=== PATIENT | male | born 1980 | race Caucasian/White ===

== ENCOUNTER 2016-11-24 03:21 | Inpatient (IN) | payer SELFPAY ==
[~2016-11-24] VITALS: Ht 177.8 cm; Wt 77.0 kg
[2016-11-24] VITALS (22 sets, daily range): BP systolic 94–172; BP diastolic 54–109; PULSE 60–93; RESP 18–25; TEMP 97.5–99.5; O2SAT 93–100
[2016-11-24] MEDS ORDERED: PROPOFOL 1000 MG/100 ML INJ 100 ML ONE (03:43)
[2016-11-24] MEDS ORDERED: SODIUM CHLORIDE 0.9% FLUSH 10 ML FLUSH IVF PRN (03:45)
--- NOTE | 2016-11-24 03:52 | PD ---
HPI . Heroin overdose Chief Complaint: OD/ Ingestion Time Seen by Provider: 03:36 Travel History International Travel<30 days: No Contact w/Intl Traveler<30days: No Traveled to known affect area: No History of Present Illness HPI Patient is brought in by [facility] following a heroin overdose at home. [facility] reports that they were called to the scene by the patient's roommates who found him unresponsive in the bathroom with a needle in his arm. EMS reports a Baxter Coma Scale of 3 on their arrival and a respiratory rate of about 4 and O2 sat of about 70%. They treated him with Narcan and airway support in route. They report that he became very agitated with the Narcan but did have an improvement in his respiratory status. No further history is available from this patient at this time. [facility] Past Medical History Diminished Hearing: No Social History Alcohol Use: Yes (RARE) Tobacco Use: Yes (2 PPD) Substance Use: Yes (HEROIN, CRACK) Allergies-Medications (Allergen,Severity, Reaction): Coded Allergies: No Known Allergies (Unverified , 11/24/16) Reported Meds & Prescriptions Reported Meds & Active Scripts Active Active Prescriptions or Reported Medications Unobtainable Review of Systems ROS Limitations: Intubated, Altered Mental Status, Unresponsive Physical Exam Exam Limitations: Altered Mental Status Narrative GENERAL: Patient is a little bit agitated on arrival. He is not verbal. He is breathing spontaneously on arrival. SKIN: Warm and dry. HEAD: Atraumatic. Normocephalic. EYES: Pupils equal and round. ENT: No nasal bleeding or discharge. Mucous membranes pink and moist. NECK: Trachea midline. Neck is supple. CARDIOVASCULAR: Regular rate and rhythm. RESPIRATORY: No accessory muscle use. He has rhonchi in GASTROINTESTINAL: Abdomen soft, non-tender, nondistended. MUSCULOSKELETAL: No obvious deformities. No edema. NEUROLOGICAL: Depressed mental status. Agitation. PSYCHIATRIC: Unable to assess. Data Data Last Documented VS Vital Signs Date Time Temp Pulse Resp B/P Pulse Ox O2 Delivery O2 Flow Rate FiO2 11/24/16 04:03 86 18 157/95 100 Ventilator 100 11/24/16 03:33 97.5 Orders Electrocardiogram (11/24/16 03:36) Complete Blood Count With Diff (11/24/16 03:36) Comprehensive Metabolic Panel (11/24/16 03:36) Urinalysis - C+S If Indicated (11/24/16 03:36) Chest, Single Ap (11/24/16 03:36) Arterial Blood Gas (Abg) (11/24/16 03:36) Iv Access Insert/Monitor (11/24/16 03:36) Ecg Monitoring (11/24/16 03:36) Oximetry (11/24/16 03:36) Ng Gastric Tube Insert/Monitor (11/24/16 03:36) Urinary Catheter Insert/Apply (11/24/16 03:36) Sodium Chloride 0.9% Flush (Ns Flush) (11/24/16 03:45) Drug Screen, Random Urine (11/24/16 03:36) Alcohol (Ethanol) (11/24/16 03:36) Salicylates (Aspirin) (11/24/16 03:36) Tylenol (Acetaminophen) (11/24/16 03:36) Propofol 1000 Mg/100 Ml Inj (Diprivan 10 (11/24/16 03:45) Propofol 1000 Mg/100 Ml Inj (Diprivan 10 (11/24/16 03:43) Admit Order (Ed Use Only) (11/24/16 04:04) MDM Medical Decision Making Medical Screen Exam Complete: Yes Emergency Medical Condition: Yes Medical Record Reviewed: Yes (patient was seen here at about March following a probable overdose. He was found unresponsive in a vehicle and was treated on scene with Narcan. His drug screen here was negative for opiates. He left AMA before treatment could be completed.) Interpretation(s) EKG shows a sinus rhythm with a rate of 82. No ST segment elevation or depression. Differential Diagnosis Differential diagnosis of altered mental status includes but is not limited to infection, electrolyte abnormality, neurological event, intoxication Narrative Course This patient presents by [facility] following a heroin overdose. He was found in the bathroom unresponsive with the needle still in his arm. Since EMS reported agitation following Narcan, the plan of placing the patient on a Narcan drip was aborted. He was intubated instead. An NG tube was inserted. A Kasper catheter was inserted. EKG, chest x-ray and routine labs have been ordered. The artist consultant has been notified of the patient's presence in the emergency department. He will need to be admitted to the ICU. Critical Care Narrative Aggregate critical care time was 30 minutes. Time to perform other separately billable procedures was not included in the critical care time. My time did not include minutes spent treating any other patients simultaneously or on activities that did not directly contribute to the patient's treatment. The services I provided to this patient were to treat and/or prevent clinically significant deterioration due to Baxter Coma Score of 3 following heroin overdose I provided critical care services requiring my management, as noted below: Chart data review, documentation time, medication orders and management, vital sign assessments/reviewing monitor data, ordering and reviewing lab tests, ordering and interpreting/reviewing x-rays and diagnostic studies, care of the patient and discussion of the patient with the admitting physicians Procedures Procedure Narrative INTUBATION: The patient was put in optimal position for the procedure. Rapid sequence intubation was initiated by me using 20 milligrams of etomidate IV and 100 milligrams of succinylcholine IV. The patient was intubated with a 8.0 cuffed endotracheal tube. Tube placement was confirmed by visualization of the tube and balloon passing through the cords, capnometry and subsequent chest x-ray. Breath sounds were equal and well aerated bilaterally postintubation. No breath sounds over stomach. Patient tolerated procedure well. EKG Prior to Arrival: No Diagnosis Primary Impression: Heroin overdose Qualified Code: T40.1X1A - Heroin overdose, accidental or unintentional, initial encounter Admitting Information Admitting Physician Requests: Admit Scripts Unable to Obtain Active Prescriptions or Reported Meds Condition: Emily Marmolejo MD Nov 24, 2016 03:52
[2016-11-24] MEDS: PROPOFOL 1000 MG/100 ML BTL IV SCH ×4 (04:05→21:31)
[2016-11-24] MEDS ORDERED: SODIUM CHLOR 0.9% 1000 ML INJ 1,000 ML IV SCH (04:13)
[2016-11-24 04:14] LABS: AMPHETAMINE, URINE POS (NEG); BARBITURATES, URINE NEG (NEG); COCAINE, URINE POS (NEG)
[2016-11-24] MEDS ORDERED: PROPOFOL 1000 MG/100 ML INJ 100 ML IV SCH (04:15)
[2016-11-24] MEDS ORDERED: SODIUM CHLORIDE 0.9% FLUSH 10 ML FLUSH PRN (04:15)
[2016-11-24] MEDS ORDERED: MISCELLANEOUS NURSING INFORMATION XX SCH (04:15)
[2016-11-24] MEDS ORDERED: LACTULOSE SYRUP 20 GM/30 ML CUP PO PRN (04:15)
[2016-11-24] MEDS ORDERED: MAGNESIUM HYDROXIDE SUSP 30 ML CUP PO PRN (04:15)
[2016-11-24] MEDS ORDERED: ETOMIDATE 20 MG/10 ML VIAL IV PUSH ONE (04:15)
[2016-11-24] MEDS ORDERED: BISACODYL 10 MG SUPP RECTAL PRN (04:15)
[2016-11-24] MEDS ORDERED: SENNOSIDES 8.6 MG TAB PO PRN (04:15)
[2016-11-24] MEDS ORDERED: RESP: ALBUTEROL 2.5 MG/IPRATROPIUM 0.5 MG NEB (PRN) INH (04:15)
[2016-11-24] MEDS ORDERED: CHLORHEXIDINE GLUCONATE 2 % 1 PACK (2 CLOTHS) TOP PRN (04:15)
[2016-11-24] MEDS ORDERED: SUCCINYLCHOLINE CHLORIDE 200 MG/10 ML VIAL IV PUSH ONE (04:15)
--- NOTE | 2016-11-24 04:22 | RADRPT ---
EXAM DATE/TIME: 11/24/2016 03:47 [facility] COMPARISON: No previous studies available for comparison. INDICATIONS : Status post intubation. MEDICAL HISTORY : Unobtainable. SURGICAL HISTORY : Unobtainable. ENCOUNTER: Initial ACUITY: 1 day PAIN SCORE: Non-responsive. LOCATION: chest FINDINGS: Single AP view of the chest. Endotracheal tube is in place with the tip 6 cm above the joshua. Nasoga stric tube is in place with the tip below the field of view of the radiograph. The side-port is in th e proximal stomach. Lungs are clear. Cardiomediastinal silhouette within normal limits. No evidence o f pleural effusion or pneumothorax. CONCLUSION: Endotracheal tube and nasogastric tube in place. Luis Foster MD on November 24, 2016 at 4:19 Board Certified Radiologist. This report was verified electronically.
[2016-11-24 04:23] LABS: BACTERIA, URINE MOD /hpf; BLOOD, URINE NEG (NEG); GLUCOSE,URINE TRACE mg/dL (NEG); HYALINE CAST, URINE 14 /lpf (RARE); KETONE, URINE NEG (NEG); MUCUS URINE FEW /lpf (OCC); NITRITE,URINE NEG (NEG); SQUAMOUS EPITHELIAL CELL URINE 1 /hpf (0-5); URINE COLOR YELLOW (YELLW/STRAW)
[2016-11-24 04:24] LABS: COMMENT (UR) CULTURE INDICATED; CULTURE IF INDICATED CULTURE INDICATED
--- NOTE | 2016-11-24 04:33 | HHI.HP ---
HPI Service Critical Care Medicine Primary Care Physician Unknown Admission Diagnosis heroin OD Diagnosis: Travel History International Travel<30 Days: No (UNABLE TO ASSESS) Contact w/Intl Traveler <30 Da: No (UNABLE TO ASSESS) Traveled to Known Affected Are: No (UNABLE TO ASSESS) History of Present Illness 36-year-old gentleman found in the bathroom by his roommates with the needle in his arm unresponsive. In the emergency department he became combative and was intubated for an airway protection Review of Systems ROS Unobtainable patient is intubated and sedated Past Family Social History Allergies: Coded Allergies: No Known Allergies (Unverified , 11/24/16) Past Medical History Heroin abuse Past Surgical History Unobtainable Reported Medications Reported Meds & Active Scripts Active Active Prescriptions or Reported Medications Unobtainable Active Ordered Medications Current Medications Medications (Trade) Dose Ordered Sig/Angelika Route PRN Reason Start Time Stop Time Status Last Admin Dose Admin Sodium Chloride (NS Flush) 2 ml UNSCH PRN IVF FLUSH AFTER USING IV ACCESS 11/24/16 03:45 Propofol search Sets for Drip. CONTINUOUS IV 11/24/16 03:45 11/24/16 04:05 Sodium Chloride (NS 1000 ml Inj) 1,000 ml @ 144 mls/hr Q6H57M IV 11/24/16 04:13 Sodium Chloride (NS Flush) 2 ml UNSCH PRN .XX FLUSH AFTER USING IV ACCESS 11/24/16 04:15 Sodium Chloride (NS Flush) 2 ml BID .XX 11/24/16 09:00 Acetaminophen (Tylenol) 650 mg Q6H PRN PO PAIN 1-10 AND/OR FEVER >101F 11/24/16 04:15 Famotidine (Pepcid Inj) 20 mg Q12HR IV PUSH 11/24/16 09:00 Enoxaparin Sodium (Lovenox Inj) 40 mg Q24H SQ 11/24/16 09:00 Miscellaneous Information 1 Q361D XX 11/24/16 04:15 Chlorhexidine Gluconate (Chlorhexidine 2% Cloth) 3 pack Taper DAILY@04 TOP 11/25/16 04:00 11/21/17 03:59 Chlorhexidine Gluconate (Chlorhexidine 2% Cloth) 3 pack UNSCH PRN TOP HYGIENIC CARE 11/24/16 04:15 Senna/Docusate Sodium (Renae-Colace) 1 tab BID PO 11/24/16 09:00 Magnesium Hydroxide (Milk Of Michael Anaya) 30 ml Q12H PRN PO MILD - MODERATE CONSTIPATION 11/24/16 04:15 Sennosides (Senokot) 17.2 mg Q12H PRN PO MODERATE - SEVERE CONSTIPATION 11/24/16 04:15 Bisacodyl (Dulcolax Supp) 10 mg DAILY PRN RECTAL SEVERE CONSITIPATION 11/24/16 04:15 Lactulose 30 ml 30 ml DAILY PRN PO SEVERE CONSITIPATION 11/24/16 04:15 Propofol (Diprivan 1000 Mg/100ml Inj) 100 ml @ 0 mls/hr TITRATE IV 11/24/16 04:15 Family History Unobtainable Social History Prior admission for heroine overdose Physical Exam Vital Signs Vital Signs Date Time Temp Pulse Resp B/P Pulse Ox O2 Delivery O2 Flow Rate FiO2 11/24/16 04:03 86 18 157/95 100 Ventilator 100 11/24/16 03:50 74 25 100 Ventilator 11/24/16 03:33 97.5 60 18 172/109 95 11/24/16 03:30 96 100 11/24/16 03:29 100 Physical Exam GENERAL: Well-nourished, well-developed patient. Sedated and intubated SKIN: Warm and dry. HEAD: Normocephalic. EYES: No scleral icterus. No injection or drainage. NECK: Supple, trachea midline. No JVD or lymphadenopathy. CARDIOVASCULAR: Regular rate and rhythm without murmurs, gallops, or rubs. RESPIRATORY: Breath sounds equal bilaterally. No accessory muscle use. GASTROINTESTINAL: Abdomen soft, non-tender, nondistended. MUSCULOSKELETAL: No cyanosis, or edema. BACK: Nontender without obvious deformity. No CVA tenderness. EXTREMITIES: No clubbing cyanosis or edema Laboratory Laboratory Tests Test 11/24/16 11/24/16 03:40 03:52 Urine Color YELLOW Urine Turbidity HAZY Urine pH 6.0 Urine Specific Fischer 1.024 Urine Protein 100 Urine Glucose (UA) TRACE Urine Ketones NEG Urine Occult Blood NEG Urine Nitrite NEG Urine Bilirubin NEG Urine Urobilinogen 2.0 Urine Leukocyte Esterase NEG Urine RBC 2 Urine WBC 5 Urine Squamous Epithelial 1 Cells Urine Amorphous Sediment RARE Urine Bacteria MOD Urine Hyaline Casts 14 Urine Mucus FEW Microscopic Urinalysis Comment CULTURE INDICATED Salicylates Level 3.5 Assessment and Plan Assessment and Plan Respiratory failure - Intubated for an airway protein - No weaning until neurologically improved - CXR and ABG daily Heroine overdose - Supportive care - Monitor for withdrawal when extubated Metabolic acidosis Acute kidney injury - Dehydration - Aggressive IV fluids resuscitation - Strict I's and O's - Electrolyte replacement per ICU protocol DVT GI prophylaxis - Teds SCDs Lovenox - IV Pepcid Critical Care: The total critical care time was 35 minutes. Time to perform other separately billable procedures was not included in the critical care time. George Wong MD Nov 24, 2016 04:33
[2016-11-24 04:36] LABS: ALKALINE PHOSPHATASE 100 U/L (45-117); TOTAL BILIRUBIN ADULT 0.3 MG/DL (0.2-1.0)
[2016-11-24 04:38] LABS: BASOPHIL # 0.1 TH/MM3 (0-0.2); BASOPHIL % 0.4 % (0.0-2.0); EOSINOPHIL % 0.1 % (0.0-4.0); HEMATOCRIT 49.4 % (39.0-51.0); LYMPH % 3.3 % (9.0-44.0); LYMPHOCYTE # 0.7 TH/MM3 (1.0-4.8); MEAN CORPUSCULAR HEMOGLOBIN 32.1 PG (27.0-34.0); MEAN CORPUSCULAR HGB CONC 32.4 % (32.0-36.0); NEUT % 92.2 % (16.0-70.0); PLATELET COUNT 268 TH/MM3 (150-450); RED BLOOD COUNT 4.99 MIL/MM3 (4.50-5.90); RED CELL DISTRIBUTION WIDTH 13.2 % (11.6-17.2); WHITE BLOOD COUNT 22.8 TH/MM3 (4.0-11.0)
[2016-11-24 04:42] LABS: HEMO FLAGS AUTO DIFF
[2016-11-24 04:50] LABS: ALT (GPT) 117 U/L (12-78); ANION GAP 10 MEQ/L (5-15); AST (GOT) 75 U/L (15-37); BLOOD UREA NITROGEN 25 MG/DL (7-18); CHLORIDE 104 MEQ/L (98-107); GLOMERULAR FILTRATION RATE 44 ML/MIN (>89); POTASSIUM 4.7 MEQ/L (3.5-5.1); SODIUM (NA) 139 MEQ/L (136-145)
[2016-11-24 04:54] LABS: ACETAMINOPHEN LESS THAN 2.0 MCG/ML (10.0-30.0)
[2016-11-24 05:09] LABS: BLOOD GAS BASE EXCESS -0.7 mmol/L (-2-2); BLOOD GAS CARBOXYHEMOGLOBIN 3.4 % (0-4); BLOOD GAS HCO3 25 mmol/L (22-26); BLOOD GAS METHEMOGLOBIN 0.7 % (0-2); BLOOD GAS O2 HGB SATURATION 95 % (90-100); BLOOD GAS OXYGEN CONTENT 20.8 Vol % (12.0-20.0); BLOOD GAS PCO2 55 mmHg (38-42); BLOOD GAS PO2 172 mmHG (61-120); BLOOD GAS TOTAL HGB 15.3 G/DL (12.0-16.0); CRITICAL VALUE YES; OXYGEN DEVICE VENTILATOR; TEMP CORR TO 98.6
[2016-11-24 05:10] LABS: DRAW SITE RT RADIAL; FIO2 100 %; NUMBER OF ARTERIAL PUNCTURES 1; STAT YES; ULNAR PULSE PRESENT
[2016-11-24 05:23] LABS: SCAN/DIFF AUTO DIFF CONFIRMED
[2016-11-24] MEDS ORDERED: DEXTROSE 50% IN WATER 50 ML VIAL(D50) IV PRN (07:15)
[2016-11-24] MEDS ORDERED: GLUCAGON 1 MG/ML VIAL OTHER PRN (07:15)
[2016-11-24] MEDS: INSULIN NovoLIN REGULAR SUPPLEMENTAL SCALE SQ SCH ×3 (07:15→19:15)
[2016-11-24] MEDS: RESP: ALBUTEROL 2.5 MG/IPRATROPIUM 0.5 MG NEB (SCH) NEB ×3 (07:47→19:33)
--- NOTE | 2016-11-24 07:52 | EKG ---
Date Performed: 11/24/2016 Time Performed: 03:34:52 PTAGE: 36 years EKG: Sinus rhythm NORMAL ECG No significant change from prior electrocardiogram. PREVIOUS TRACING : 04/19/2016 12.51 DOCTOR: Junaid Mares Interpretating Date/Time 11/24/2016 07:51:52
[2016-11-24] MEDS ORDERED: cefTRIAXone INJ 1,000 MG in SODIUM CHLORIDE 0.9% INJ 100 ML IV SCH (08:00)
[2016-11-24] MEDS: DOCUSATE SODIUM 50 MG/SENNA 8.6 MG TAB PO SCH ×2 (08:21→21:05)
[2016-11-24] MEDS: ENOXAPARIN SODIUM 40 MG/0.4 ML SYRINGE SQ SCH (08:21)
[2016-11-24] MEDS: FAMOTIDINE 20 MG/2 ML VIAL IV PUSH SCH ×2 (08:21→21:04)
[2016-11-24] MEDS: SODIUM CHLOR 0.9% 1000 ML INJ 1,000 ML IV SCH ×3 (08:22→23:06)
[2016-11-24] MEDS: SODIUM CHLORIDE 0.9% FLUSH 10 ML FLUSH SCH ×2 (08:26→21:04)
[2016-11-24 09:06] LABS: BASOPHIL # 0.1 TH/MM3 (0-0.2); BASOPHIL % 0.4 % (0.0-2.0); HEMATOCRIT 42.1 % (39.0-51.0); HEMO FLAGS DIFF FINAL; LYMPH % 9.6 % (9.0-44.0); LYMPHOCYTE # 1.7 TH/MM3 (1.0-4.8); MEAN CELL VOLUME 94.6 FL (80.0-100.0); MEAN CORPUSCULAR HEMOGLOBIN 32.2 PG (27.0-34.0); MEAN CORPUSCULAR HGB CONC 34.1 % (32.0-36.0); PLATELET COUNT 206 TH/MM3 (150-450); RED BLOOD COUNT 4.46 MIL/MM3 (4.50-5.90); WHITE BLOOD COUNT 17.5 TH/MM3 (4.0-11.0)
[2016-11-24 09:10] LABS: BLOOD GAS BASE EXCESS -1.3 mmol/L (-2-2); BLOOD GAS CARBOXYHEMOGLOBIN 2.4 % (0-4); BLOOD GAS HCO3 24 mmol/L (22-26); BLOOD GAS O2 HGB SATURATION 95 % (90-100); BLOOD GAS OXYGEN CONTENT 19.8 Vol % (12.0-20.0); BLOOD GAS PCO2 44 mmHg (38-42); BLOOD GAS PO2 123 mmHg (61-120); BLOOD GAS TOTAL HGB 14.6 G/DL (12.0-16.0); CRITICAL VALUE NO; OXYGEN DEVICE VENTILATOR; TEMP CORR TO 98.6
[2016-11-24 09:11] LABS: DRAW SITE RT RADIAL; FIO2 40 %; NUMBER OF ARTERIAL PUNCTURES 1; ULNAR PULSE PRESENT
[2016-11-24 09:14] LABS: PROTHROMBIN TIME - PATIENT 11.1 SEC (9.8-11.6)
[2016-11-24 09:32] LABS: ALT (GPT) 98 U/L (12-78); ANION GAP 8 MEQ/L (5-15); AST (GOT) 69 U/L (15-37); BICARBONATE 24.3 MEQ/L (21.0-32.0); BLOOD UREA NITROGEN 25 MG/DL (7-18); CHLORIDE 106 MEQ/L (98-107); GLOMERULAR FILTRATION RATE 69 ML/MIN (>89); MAGNESIUM 2.6 MG/DL (1.5-2.5); POTASSIUM 3.9 MEQ/L (3.5-5.1); SODIUM (NA) 138 MEQ/L (136-145)
[2016-11-24 09:35] LABS: ALKALINE PHOSPHATASE 76 U/L (45-117); TOTAL BILIRUBIN ADULT 0.5 MG/DL (0.2-1.0)
[2016-11-24] MEDS ORDERED: DEXMEDETOMIDINE INJ 200 MCG in SODIUM CHLORIDE 0.9% INJ 50 ML IV SCH (10:15)
[2016-11-24] MEDS: LACTULOSE SYRUP 20 GM/30 ML CUP PO SCH ×2 (13:59→21:05)
--- NOTE | 2016-11-24 19:42 | RADRPT ---
EXAM DATE/TIME: 11/24/2016 17:46 [facility] COMPARISON: No previous studies available for comparison. INDICATIONS : Abnormal labs. MEDICAL HISTORY : Herion overdose. SURGICAL HISTORY : Intubated. ENCOUNTER: Initial ACUITY: 1 day PAIN SCORE: Nonresponsive. LOCATION: Bilateral upper quadrant MEASUREMENTS: LIVER: 15.3 cm length COMMON DUCT: 2 mm RIGHT KIDNEY: 10.3 x 5.7 x 4.6 cm SPLEEN: 10.7 cm length FINDINGS: There is fatty infiltration of the liver. Trace free fluid around the liver. There is gallbladder wal l thickening and minimal pericholecystic fluid. No gallstones or biliary ductal dilatation. CONCLUSION: 1. Fatty infiltration of the liver. Trace free fluid. Mild gallbladder wall thickening without eviden ce for choledocholithiasis or cholelithiasis. Avila Rojas MD on November 24, 2016 at 19:39 Board Certified Radiologist. This report was verified electronically.
[2016-11-25] VITALS (17 sets, daily range): BP systolic 116–147; BP diastolic 60–84; PULSE 58–88; RESP 18–47; TEMP 98.2–101; O2SAT 91–100
[2016-11-25] MEDS: INSULIN NovoLIN REGULAR SUPPLEMENTAL SCALE SQ SCH ×4 (01:14→18:20)
[2016-11-25] MEDS: PROPOFOL 1000 MG/100 ML BTL IV SCH ×2 (01:51→05:38)
[2016-11-25] MEDS: ACETAMINOPHEN 325 MG TAB PO PRN ×2 (03:14→21:03)
[2016-11-25] MEDS: RESP: ALBUTEROL 2.5 MG/IPRATROPIUM 0.5 MG NEB (SCH) NEB ×4 (03:37→21:13)
[2016-11-25] MEDS: CHLORHEXIDINE GLUCONATE 2 % 1 PACK (2 CLOTHS) TOP SCH (04:00)
[2016-11-25 04:49] LABS: AUTOMATED NEUTROPHIL # 15.4 TH/MM3 (1.8-7.7); BASOPHIL # 0.1 TH/MM3 (0-0.2); BASOPHIL % 0.3 % (0.0-2.0); EOSINOPHIL % 0.1 % (0.0-4.0); HEMATOCRIT 40.1 % (39.0-51.0); HEMO FLAGS DIFF FINAL; LYMPH % 7.9 % (9.0-44.0); LYMPHOCYTE # 1.4 TH/MM3 (1.0-4.8); MEAN CELL VOLUME 94.6 FL (80.0-100.0); MEAN CORPUSCULAR HEMOGLOBIN 32.4 PG (27.0-34.0); MEAN CORPUSCULAR HGB CONC 34.2 % (32.0-36.0); MONO % 7.2 % (0.0-8.0); NEUT % 84.5 % (16.0-70.0); PLATELET COUNT 211 TH/MM3 (150-450); RED BLOOD COUNT 4.24 MIL/MM3 (4.50-5.90); RED CELL DISTRIBUTION WIDTH 13.1 % (11.6-17.2); WHITE BLOOD COUNT 18.3 TH/MM3 (4.0-11.0)
[2016-11-25 05:07] LABS: ALT (GPT) 85 U/L (12-78); ANION GAP 6 MEQ/L (5-15); AST (GOT) 56 U/L (15-37); BLOOD UREA NITROGEN 22 MG/DL (7-18); CHLORIDE 111 MEQ/L (98-107); GLOMERULAR FILTRATION RATE 69 ML/MIN (>89); MAGNESIUM 2.3 MG/DL (1.5-2.5); POTASSIUM 3.7 MEQ/L (3.5-5.1); SODIUM (NA) 143 MEQ/L (136-145)
[2016-11-25 05:09] LABS: ALKALINE PHOSPHATASE 72 U/L (45-117); TOTAL BILIRUBIN ADULT 0.4 MG/DL (0.2-1.0)
--- NOTE | 2016-11-25 05:22 | RADRPT ---
EXAM DATE/TIME: 11/25/2016 02:39 [facility] COMPARISON: CHEST SINGLE AP, November 24, 2016, 3:47. INDICATIONS : Respiratory failure. MEDICAL HISTORY : None. SURGICAL HISTORY : None. ENCOUNTER: Subsequent ACUITY: 3 days PAIN SCORE: Non-responsive. LOCATION: Bilateral chest FINDINGS: A single view of the chest demonstrates the endotracheal tube, nasogastric tube are both in good posi tion. The cardiomediastinal contours are unremarkable. Osseous structures are intact. CONCLUSION: Lungs are grossly clear. ET tube and nasogastric are in good position Jesus Cardona MD on November 25, 2016 at 5:20 Board Certified Radiologist. This report was verified electronically.
[2016-11-25] MEDS: SODIUM CHLOR 0.9% 1000 ML INJ 1,000 ML IV SCH ×2 (06:27→18:16)
[2016-11-25 06:32] LABS: AUTOMATED NEUTROPHIL # 15.2 TH/MM3 (1.8-7.7); BASOPHIL # 0.1 TH/MM3 (0-0.2); BASOPHIL % 0.3 % (0.0-2.0); EOSINOPHIL % 0.1 % (0.0-4.0); HEMATOCRIT 40.2 % (39.0-51.0); HEMO FLAGS DIFF FINAL; LYMPH % 8.1 % (9.0-44.0); LYMPHOCYTE # 1.5 TH/MM3 (1.0-4.8); MEAN CELL VOLUME 95.1 FL (80.0-100.0); MEAN CORPUSCULAR HEMOGLOBIN 32.3 PG (27.0-34.0); MEAN CORPUSCULAR HGB CONC 33.9 % (32.0-36.0); NEUT % 83.5 % (16.0-70.0); PLATELET COUNT 206 TH/MM3 (150-450); RED BLOOD COUNT 4.23 MIL/MM3 (4.50-5.90); RED CELL DISTRIBUTION WIDTH 13.2 % (11.6-17.2); WHITE BLOOD COUNT 18.2 TH/MM3 (4.0-11.0)
[2016-11-25 06:34] LABS: ALT (GPT) 82 U/L (12-78); ANION GAP 6 MEQ/L (5-15); AST (GOT) 56 U/L (15-37); BICARBONATE 24.9 MEQ/L (21.0-32.0); BLOOD UREA NITROGEN 22 MG/DL (7-18); CHLORIDE 111 MEQ/L (98-107); GLOMERULAR FILTRATION RATE 64 ML/MIN (>89); MAGNESIUM 2.5 MG/DL (1.5-2.5); POTASSIUM 3.7 MEQ/L (3.5-5.1); SODIUM (NA) 142 MEQ/L (136-145)
[2016-11-25 06:37] LABS: ALKALINE PHOSPHATASE 71 U/L (45-117); TOTAL BILIRUBIN ADULT 0.4 MG/DL (0.2-1.0)
[2016-11-25] MEDS ORDERED: MAGNESIUM OXIDE 400 MG TAB PO PRN (08:15)
[2016-11-25] MEDS ORDERED: MAGNESIUM SULFATE INJ 4 GM in SODIUM CHLORIDE 0.9% INJ 92 ML IV PRN (08:15)
[2016-11-25] MEDS ORDERED: MAGNESIUM SULFATE INJ 2 GM in SODIUM CHLORIDE 0.9% INJ 96 ML IV PRN (08:15)
[2016-11-25] MEDS ORDERED: POTASSIUM CHLORIDE 25 MEQ EFFERVESCENT TAB PO PRN (08:15)
[2016-11-25] MEDS ORDERED: POTASSIUM CHLOR 20 MEQ PREMIX 100 ML IV PRN ×2 (08:15)
[2016-11-25] MEDS ORDERED: POTASSIUM PHOSPHATE MONOBASIC 500 MG TAB PO PRN (08:15)
[2016-11-25] MEDS ORDERED: POTASSIUM PHOSPHATE INJ 30 MMOL in SODIUM CHLOR 0.9% 250 ML INJ 250 ML IV PRN (08:15)
[2016-11-25] MEDS ORDERED: POTASSIUM CHLOR 40 MEQ PREMIX 100 ML IV PRN ×2 (08:15)
[2016-11-25] MEDS ORDERED: POTASSIUM PHOSPHATE MONOBASIC 500 MG TAB PO/TUBE PRN (08:15)
[2016-11-25] MEDS ORDERED: SODIUM PHOSPHATE INJ 30 MMOL in SODIUM CHLOR 0.9% 250 ML INJ 240 ML IV PRN (08:15)
--- NOTE | 2016-11-25 08:21 | HHI.CCPN ---
Subjective Remarks/Hospital Course 36-year-old gentleman found in the bathroom by his roommates with the needle in his arm unresponsive. In the emergency department he became combative and was intubated for an airway protection 11/25 Patient is sedated with Diprivan and intubated. T: 101.0 at 4 am. Objective Vital Signs Date Time Temp Pulse Resp B/P Pulse Ox O2 Delivery O2 Flow Rate FiO2 11/25/16 07:42 97 40 11/25/16 06:00 64 11/25/16 04:00 101.0 18 116/60 11/24/16 04:32 Ventilator Intake and Output 11/24/16 11/24/16 11/25/16 08:00 16:00 00:00 Intake Total 40 ml 1000 ml 1181 ml Output Total 300 ml 700 ml 100 ml Balance -260 ml 300 ml 1081 ml Result Diagram: 11/25/1660411/25/16604 Other Results Laboratory Tests Test 11/24/16 11/24/16 11/24/16 11/25/16 08:50 08:55 11:49 04:19 White Blood Count 17.5 TH/MM3 18.3 TH/MM3 Red Blood Count 4.46 MIL/MM3 4.24 MIL/MM3 Hemoglobin 14.4 GM/DL 13.7 GM/DL Hematocrit 42.1 % 40.1 % Mean Corpuscular Volume 94.6 FL 94.6 FL Mean Corpuscular Hemoglobin 32.2 PG 32.4 PG Mean Corpuscular Hemoglobin 34.1 % 34.2 % Concent Red Cell Distribution Width 13.0 % 13.1 % Platelet Count 206 TH/MM3 211 TH/MM3 Mean Platelet Volume 8.5 FL 8.7 FL Neutrophils (%) (Auto) 80.0 % 84.5 % Lymphocytes (%) (Auto) 9.6 % 7.9 % Monocytes (%) (Auto) 10.0 % 7.2 % Eosinophils (%) (Auto) 0.0 % 0.1 % Basophils (%) (Auto) 0.4 % 0.3 % Neutrophils # (Auto) 14.0 TH/MM3 15.4 TH/MM3 Lymphocytes # (Auto) 1.7 TH/MM3 1.4 TH/MM3 Monocytes # (Auto) 1.7 TH/MM3 1.3 TH/MM3 Eosinophils # (Auto) 0.0 TH/MM3 0.0 TH/MM3 Basophils # (Auto) 0.1 TH/MM3 0.1 TH/MM3 CBC Comment DIFF FINAL DIFF FINAL Differential Comment Prothrombin Time 11.1 SEC Prothromb Time International 1.0 RATIO Ratio Sodium Level 138 MEQ/L 143 MEQ/L Potassium Level 3.9 MEQ/L 3.7 MEQ/L Chloride Level 106 MEQ/L 111 MEQ/L Carbon Dioxide Level 24.3 MEQ/L 26.0 MEQ/L Anion Gap 8 MEQ/L 6 MEQ/L Blood Urea Nitrogen 25 MG/DL 22 MG/DL Creatinine 1.18 MG/DL 1.19 MG/DL Estimat Glomerular Filtration 69 ML/MIN 69 ML/MIN Rate Random Glucose 75 MG/DL 106 MG/DL Calcium Level 8.4 MG/DL 7.9 MG/DL Phosphorus Level 2.8 MG/DL 2.1 MG/DL Magnesium Level 2.6 MG/DL 2.3 MG/DL Total Bilirubin 0.5 MG/DL 0.4 MG/DL Aspartate Amino Transf 69 U/L 56 U/L (AST/SGOT) Alanine Aminotransferase 98 U/L 85 U/L (ALT/SGPT) Alkaline Phosphatase 76 U/L 72 U/L Total Protein 6.7 GM/DL 6.1 GM/DL Albumin 3.3 GM/DL 2.9 GM/DL Blood Gas Puncture Site RT RADIAL Blood Gas Patient Temperature 98.6 Blood Gas HCO3 24 mmol/L Blood Gas Base Excess -1.3 mmol/L Blood Gas Oxygen Saturation 95 % Arterial Blood pH 7.35 Arterial Blood Partial 44 mmHg Pressure CO2 Arterial Blood Partial 123 mmHg Pressure O2 Arterial Blood Oxygen Content 19.8 Vol % Arterial Blood 2.4 % Carboxyhemoglobin Arterial Blood Methemoglobin 1.0 % Blood Gas Hemoglobin 14.6 G/DL Oxygen Delivery Device VENTILATOR Blood Gas Ventilator Setting Blood Gas Inspired Oxygen 40 % Ammonia 70 MCMOL/L Test 11/25/16 06:05 White Blood Count 18.2 TH/MM3 Red Blood Count 4.23 MIL/MM3 Hemoglobin 13.6 GM/DL Hematocrit 40.2 % Mean Corpuscular Volume 95.1 FL Mean Corpuscular Hemoglobin 32.3 PG Mean Corpuscular Hemoglobin 33.9 % Concent Red Cell Distribution Width 13.2 % Platelet Count 206 TH/MM3 Mean Platelet Volume 8.7 FL Neutrophils (%) (Auto) 83.5 % Lymphocytes (%) (Auto) 8.1 % Monocytes (%) (Auto) 8.0 % Eosinophils (%) (Auto) 0.1 % Basophils (%) (Auto) 0.3 % Neutrophils # (Auto) 15.2 TH/MM3 Lymphocytes # (Auto) 1.5 TH/MM3 Monocytes # (Auto) 1.5 TH/MM3 Eosinophils # (Auto) 0.0 TH/MM3 Basophils # (Auto) 0.1 TH/MM3 CBC Comment DIFF FINAL Differential Comment Sodium Level 142 MEQ/L Potassium Level 3.7 MEQ/L Chloride Level 111 MEQ/L Carbon Dioxide Level 24.9 MEQ/L Anion Gap 6 MEQ/L Blood Urea Nitrogen 22 MG/DL Creatinine 1.26 MG/DL Estimat Glomerular Filtration 64 ML/MIN Rate Random Glucose 94 MG/DL Calcium Level 7.8 MG/DL Phosphorus Level 2.0 MG/DL Magnesium Level 2.5 MG/DL Total Bilirubin 0.4 MG/DL Aspartate Amino Transf 56 U/L (AST/SGOT) Alanine Aminotransferase 82 U/L (ALT/SGPT) Alkaline Phosphatase 71 U/L Total Protein 5.9 GM/DL Albumin 2.7 GM/DL Imaging Last Impressions Chest X-Ray 11/25/16 0600 Signed Impressions: Service Date/Time: Friday, November 25, 2016 02:39 - CONCLUSION: Lungs are grossly clear. ET tube and nasogastric are in good position Jesus Cardona MD Liver Ultrasound 11/24/16 0000 Signed Impressions: Service Date/Time: Thursday, November 24, 2016 17:46 - CONCLUSION: 1. Fatty infiltration of the liver. Trace free fluid. Mild gallbladder wall thickening without evidence for choledocholithiasis or cholelithiasis. Avila Rojas MD Objective Remarks GENERAL: Well-nourished, well-developed patient. Sedated and intubated SKIN: Warm and dry. HEAD: Normocephalic. EYES: No scleral icterus. No injection or drainage. NECK: Supple, trachea midline. No JVD or lymphadenopathy. CARDIOVASCULAR: Regular rate and rhythm without murmurs, gallops, or rubs. RESPIRATORY: Breath sounds equal bilaterally. No accessory muscle use. GASTROINTESTINAL: Abdomen soft, non-tender, nondistended. MUSCULOSKELETAL: No cyanosis, or edema. Neuro: Sedated, intubated A/P Assessment and Plan VDRF Polysubstance abuse UDS: Cocaine, Cannabinoids, Amphetamines, Opiates Leukocytosis Mild MATTHEW..improving Elevated LFT's Plan Neuro: On Diprivan infusion for sedation. Daily sedation vacation. Precedex drip for agitation and to facilitate with weaning trials On Lactulose 30mg BID, recheck Ammonia level Pulm: Continue with vent support keep sat >92% Bronchodilators, ICU vent bundle. Start SBT trials as briana CV: Monitor HR and BP keep MAP>65mmHg : Monitor renal function, electrolytes replacement per protocol Decrease IVF- NS@75ml/hr GI: On Pepcid 20mg IV Q12, continue with tube feeds- 2cal HN @goal rate 55ml/hr Monitor LFT's, US Liver: . Fatty infiltration of the liver. Trace free fluid. Mild gallbladder wall thickening without evidence for choledocholithiasis or cholelithiasis. Follow up on Hepatits profile. ID: Change Rocephin to Zosyn, give Vanco 1gram x1, check BC x 2 sets, follow up on urine cx CXR today- no acute disease Monitor for signs of infections ( Fever, WBC) Heme: Monitor CBC Endo: SSI for glycemic control GI/DVT prophylaxis- On Pepcid and Lovenox respectively. Addendum: Patient is self extubated on 4L oxygen with good sats off Precedex drip. Will sign off and transfer care to [facility] Level 3 Izabela Mazariegos MD Nov 25, 2016 08:21
[2016-11-25] MEDS: SODIUM CHLORIDE 0.9% FLUSH 10 ML FLUSH SCH ×2 (09:00→21:02)
[2016-11-25] MEDS: FAMOTIDINE 20 MG/2 ML VIAL IV PUSH SCH ×2 (09:30→21:02)
[2016-11-25] MEDS: DOCUSATE SODIUM 50 MG/SENNA 8.6 MG TAB PO SCH ×2 (09:31→21:00)
[2016-11-25] MEDS: ENOXAPARIN SODIUM 40 MG/0.4 ML SYRINGE SQ SCH (09:31)
[2016-11-25] MEDS: PIPERACIL-TAZO 4.5 GM PREMIX 100 ML IV SCH ×3 (09:48→21:02)
[2016-11-25] MEDS: LACTULOSE SYRUP 20 GM/30 ML CUP PO SCH ×2 (09:49→21:00)
[2016-11-25] MEDS ORDERED: VANCOMYCIN INJ 1,000 MG in SODIUM CHLOR 0.9% 250 ML INJ 250 ML IV ONE (10:00)
[2016-11-25] MEDS: HALOPERIDOL LACTATE 5 MG/ML AMP IV PUSH PRN (21:04)
[2016-11-26] VITALS (10 sets, daily range): BP systolic 119–145; BP diastolic 68–78; PULSE 57–70; RESP 12–23; TEMP 98.4–99.4; O2SAT 94–100
[2016-11-26] MEDS: HALOPERIDOL LACTATE 5 MG/ML AMP IV PUSH PRN ×2 (01:10→04:57)
[2016-11-26] MEDS: INSULIN NovoLIN REGULAR SUPPLEMENTAL SCALE SQ SCH ×4 (01:14→18:25)
[2016-11-26] MEDS: PIPERACIL-TAZO 4.5 GM PREMIX 100 ML IV SCH ×3 (02:29→15:22)
[2016-11-26] MEDS: RESP: ALBUTEROL 2.5 MG/IPRATROPIUM 0.5 MG NEB (SCH) NEB ×3 (03:03→15:59)
[2016-11-26] MEDS: CHLORHEXIDINE GLUCONATE 2 % 1 PACK (2 CLOTHS) TOP SCH (04:00)
[2016-11-26] MEDS: ACETAMINOPHEN 325 MG TAB PO PRN (04:57)
[2016-11-26 06:09] LABS: AUTOMATED NEUTROPHIL # 10.4 TH/MM3 (1.8-7.7); BASOPHIL # 0.1 TH/MM3 (0-0.2); BASOPHIL % 0.4 % (0.0-2.0); EOSINOPHIL # 0.1 TH/MM3 (0-0.4); EOSINOPHIL % 0.8 % (0.0-4.0); HEMATOCRIT 41.7 % (39.0-51.0); HEMO FLAGS DIFF FINAL; LYMPH % 16.5 % (9.0-44.0); LYMPHOCYTE # 2.3 TH/MM3 (1.0-4.8); MEAN CELL VOLUME 95.6 FL (80.0-100.0); MEAN CORPUSCULAR HEMOGLOBIN 31.8 PG (27.0-34.0); MEAN CORPUSCULAR HGB CONC 33.3 % (32.0-36.0); MONO % 8.8 % (0.0-8.0); NEUT % 73.5 % (16.0-70.0); PLATELET COUNT 224 TH/MM3 (150-450); RED BLOOD COUNT 4.37 MIL/MM3 (4.50-5.90); RED CELL DISTRIBUTION WIDTH 13.3 % (11.6-17.2); WHITE BLOOD COUNT 14.2 TH/MM3 (4.0-11.0)
[2016-11-26 06:26] LABS: ANION GAP 10 MEQ/L (5-15); AST (GOT) 52 U/L (15-37); BICARBONATE 23.5 MEQ/L (21.0-32.0); BLOOD UREA NITROGEN 13 MG/DL (7-18); CHLORIDE 112 MEQ/L (98-107); GLOMERULAR FILTRATION RATE 74 ML/MIN (>89); MAGNESIUM 2.3 MG/DL (1.5-2.5); POTASSIUM 3.1 MEQ/L (3.5-5.1); SODIUM (NA) 145 MEQ/L (136-145)
[2016-11-26 06:30] LABS: ALKALINE PHOSPHATASE 107 U/L (45-117); ALT (GPT) 68 U/L (12-78); TOTAL BILIRUBIN ADULT 0.6 MG/DL (0.2-1.0)
[2016-11-26] MEDS ORDERED: KETOROLAC TROMETHAMINE 30 MG/ML (IVP) VIAL IV PUSH PRN (09:00)
[2016-11-26] MEDS: LACTULOSE SYRUP 20 GM/30 ML CUP PO SCH (09:01)
[2016-11-26] MEDS: FAMOTIDINE 20 MG/2 ML VIAL IV PUSH SCH (09:01)
[2016-11-26] MEDS: ENOXAPARIN SODIUM 40 MG/0.4 ML SYRINGE SQ SCH (09:02)
[2016-11-26] MEDS: SODIUM CHLORIDE 0.9% FLUSH 10 ML FLUSH SCH (09:02)
[2016-11-26] MEDS: DOCUSATE SODIUM 50 MG/SENNA 8.6 MG TAB PO SCH (09:07)
--- NOTE | 2016-11-26 09:19 | HHI.PR ---
Subjective Remarks Follow-up for heroine overdose Patient has no complaints. Denied any shortness of breathing, pain, chest pain , palpitation, lightheadedness/dizziness. Dealt with patient's nurse who asked for a psychiatric consult due to coping skills. I'll dealt with patient regards to this and he stated that he does not want to see psychiatrist. He denied any depression or feeling sad. Denied any suicidal or homicidal ideation. Per patient's nurse his mother requests this because she stated that he has a hard time coping with things such as a breakup with his girlfriend. Objective Vitals Vital Signs Date Time Temp Pulse Resp B/P Pulse Ox O2 Delivery O2 Flow Rate FiO2 11/26/16 06:00 70 11/26/16 05:00 99.4 63 23 138/76 94 11/26/16 04:00 63 11/26/16 02:00 63 11/26/16 00:00 70 11/26/16 00:00 99.2 70 19 119/68 94 11/25/16 22:00 88 11/25/16 21:15 94 Nasal Cannula 4.00 11/25/16 20:00 98.2 86 30 147/76 93 11/25/16 20:00 86 11/25/16 18:00 67 11/25/16 16:00 99.9 74 47 136/84 91 11/25/16 16:00 74 11/25/16 14:00 60 11/25/16 12:00 64 11/25/16 12:00 100.0 64 22 126/73 96 11/25/16 11:59 96 40 11/25/16 10:00 84 I/O 11/25/16 11/25/16 11/25/16 11/26/16 11/26/16 11/26/16 07:00 15:00 23:00 07:00 15:00 23:00 Intake Total 1150 ml 1224 ml 1224 ml 666 ml Output Total 550 ml 675 ml 1150 ml 325 ml Balance 600 ml 549 ml 74 ml 341 ml Intake Oral 480 ml 120 ml IV Total 1107 ml 1224 ml 744 ml 546 ml Tube Feeding 43 ml Output Urine Total 550 ml 675 ml 1150 ml 325 ml # Bowel Movements 0 1 0 Result Diagram: 11/26/16 0446 11/26/16 0446 Objective Remarks GENERAL: in NAD and sitting up in bed answering all questions. CARDIOVASCULAR: Regular rate and rhythm without murmurs, gallops, or rubs. RESPIRATORY: Breath sounds equal bilaterally. No accessory muscle use. GASTROINTESTINAL: Abdomen soft, non-tender, nondistended. NEURO: AAO X 3. CN 2-12 intact. Psych: Affect is appropriate. Medications and IVs Current Medications Sodium Chloride (NS Flush) 2 ml UNSCH PRN IVF FLUSH AFTER USING IV ACCESS; Start 11/24/16 at 03:45 Propofol search Sets for Drip. CONTINUOUS IV Last administered on 11/25/16 05: 38; Start 11/24/16 at 03:45; Stop 11/25/16 at 12:40; Status DC Propofol (Diprivan 1000 Mg/100ml Inj) 100 ml @ As Directed STK-MED ONCE .ROUTE ; Start 11/24/16 at 03:43; Stop 11/24/16 at 03:44; Status DC Etomidate (Amidate Inj) 20 mg ONCE ONCE IV PUSH Last administered on 03:29; Start 11/24/16 at 04:15; Stop 11/24/16 at 04:16; Status DC Succinylcholine Chloride 100 mg 100 mg ONCE ONCE IV PUSH Last administered on 11/24/16 03:30; Start 11/24/16 at 04:15; Stop 11/24/16 at 04:16; Status DC Sodium Chloride (NS 1000 ml Inj) 1,000 ml @ 144 mls/hr Q6H57M IV ; Start at 04:13; Stop 11/24/16 at 07:16; Status DC Sodium Chloride (NS Flush) 2 ml UNSCH PRN .XX FLUSH AFTER USING IV ACCESS; Start 11/24/16 at 04:15 Sodium Chloride (NS Flush) 2 ml BID .XX Last administered on 11/26/16 09:02; Start 11/24/16 at 09:00 Acetaminophen (Tylenol) 650 mg Q6H PRN PO PAIN 1-10 AND/OR FEVER >101F Last administered on 11/26/16 04:57; Start 11/24/16 at 04:15 Famotidine (Pepcid Inj) 20 mg Q12HR IV PUSH Last administered on 11/26/16 09: 01; Start 11/24/16 at 09:00 Albuterol/ Ipratropium (Duoneb Neb) 1 ampule Q2HR NEB PRN INH WHEEZING; Start 11/24/16 at 04:15 Enoxaparin Sodium (Lovenox Inj) 40 mg Q24H SQ Last administered on 11/26/16 09 :02; Start 11/24/16 at 09:00 Miscellaneous Information 1 [id number] XX ; Start 11/24/16 at 04:15 Chlorhexidine Gluconate (Chlorhexidine 2% Cloth) 3 pack Taper DAILY@04 TOP Last administered on 11/26/16 04:00; Start 11/25/16 at 04:00; Stop 11/21/17 at 03:59 Chlorhexidine Gluconate (Chlorhexidine 2% Cloth) 3 pack UNSCH PRN TOP HYGIENIC CARE; Start 11/24/16 at 04:15 Senna/Docusate Sodium (Renae-Colace) 1 tab BID PO Last administered on 09:07; Start 11/24/16 at 09:00 Magnesium Hydroxide (Milk Of Magnesia Liq) 30 ml Q12H PRN PO MILD - MODERATE CONSTIPATION; Start 11/24/16 at 04:15 Sennosides (Senokot) 17.2 mg Q12H PRN PO MODERATE - SEVERE CONSTIPATION; Start 11/24/16 at 04:15 Bisacodyl (Dulcolax Supp) 10 mg DAILY PRN RECTAL SEVERE CONSITIPATION; Start at 04:15 Lactulose 30 ml 30 ml DAILY PRN PO SEVERE CONSITIPATION; Start 11/24/16 at 04: 15 Propofol (Diprivan 1000 Mg/100ml Inj) 100 ml @ 0 mls/hr TITRATE IV ; Start 11/24 at 04:15; Stop 11/25/16 at 12:40; Status DC Albuterol/ Ipratropium 1 ampule 1 ampule Q6HR NEB NEB Last administered on 21:13; Start 11/24/16 at 10:00 Sodium Chloride (NS 1000 ml Inj) 1,000 ml @ 75 mls/hr [id number] IV Last administered on 11/25/16 18:16; Start 11/24/16 at 07:15 Dextrose (D50w (Vial) Inj) 50 ml UNSCH PRN IV HYPOGLYCEMIA-SEE COMMENTS; Start 11/24/16 at 07:15 Glucagon (Glucagon Inj) 1 mg UNSCH PRN OTHER HYPOGLYCEMIA-SEE COMMENTS; Start 11/24/16 at 07:15 Insulin Human Regular 1 1 Q6H SQ Last administered on 11/25/16 18:20; Start at 07:15 Ceftriaxone Sodium 1000 mg/ Sodium Chloride 100 ml @ 200 mls/hr Q24H IV Last administered on 11/24/16 08:20; Start 11/24/16 at 08:00; Stop 11/25/16 at 08:25 ; Status DC Dexmedetomidine HCl/Sodium Chloride (Precedex Inj/NS Inj) 52 ml @ 0 mls/hr TITRATE IV Last administered on 11/24/16 14:34; Start 11/24/16 at 10:15 Lactulose 30 ml 30 ml BID PO Last administered on 11/26/16 09:01; Start at 13:30 Potassium Chloride 100 ml @ 50 mls/hr Q2H PRN IV For Potassium 2.8 - 3.2 mEq/L ; Start 11/25/16 at 08:15 Potassium Chloride (KCl 20 Meq Premix Inj) 100 ml @ 50 mls/hr Q2H PRN IV For Potassium 2.8 - 3.2 mEq/L; Start 11/25/16 at 08:15 Potassium Bicarb/ Potassium Chloride 50 meq 50 meq UNSCH PRN PO For Potassium 3.3 - 3.5 mEq/L; Start 11/25/16 at 08:15 Potassium Chloride 100 ml @ 25 mls/hr UNSCH PRN IV For Potassium 3.3 - 3.5 mEq /L; Start 11/25/16 at 08:15 Potassium Chloride 100 ml @ 50 mls/hr Q2H PRN IV For Potassium 3.3 - 3.5 mEq/L ; Start 11/25/16 at 08:15 Magnesium Sulfate/ Sodium Chloride (Magnesium Sulfate Inj/NS Inj) 100 ml @ 50 mls/hr UNSCH PRN IV For Magnesium 0.9 - 1.1 mg/dL; Start 11/25/16 at 08:15 Magnesium Oxide 800 mg 800 mg UNSCH PRN PO For Magnesium 1.2 - 1.6 mg/dL; Start 11/25/16 at 08:15 Magnesium Sulfate/ Sodium Chloride (Magnesium Sulfate Inj/NS Inj) 100 ml @ 50 mls/hr UNSCH PRN IV For Magnesium 1.2 - 1.6 mg/dL; Start 11/25/16 at 08:15 Potassium Phosphate 2000 mg 2,000 mg Q4H PRN PO For Phosphorus < 2.5 mg/dL; Start 11/25/16 at 08:15 Sodium Phosphate/ Sodium Chloride (Sodium Phosphate Inj/NS 250 ml Inj) 250 ml @ 42 mls/hr UNSCH PRN IV For Phosphorus < 2.5 mg/dL Last administered on 10:57; Start 11/25/16 at 08:15 Potassium Phosphate 2000 mg 2,000 mg UNSCH PRN PO/TUBE SEE LABEL COMMENTS; Start 11/25/16 at 08:15 Potassium Phosphate 30 mmol/ Sodium Chloride 260 ml @ 42 mls/hr UNSCH PRN IV SEE LABEL COMMENTS Last administered on 11/26/16 06:50; Start 11/25/16 at 08:15 Vancomycin HCl 1000 mg/Sodium Chloride 250 ml @ 250 mls/hr ONCE ONCE IV Last administered on 11/25/16 09:49; Start 11/25/16 at 10:00; Stop 11/25/16 at 10:59 ; Status DC Piperacillin Sod/ Tazobactam Sod (Zosyn 4.5 Gm Premix) 100 ml @ 200 mls/hr Q6H IV Last administered on 11/26/16 09:02; Start 11/25/16 at 09:00 Haloperidol Lactate (Haldol Inj) 2 mg Q4HR PRN IV PUSH agitation Last administered on 11/26/16 04:57; Start 11/25/16 at 11:00 Fentanyl Citrate (fentaNYL INJ) 50 mcg NOW ONCE IV Last administered on 18:22; Start 11/25/16 at 18:15; Stop 11/25/16 at 18:16; Status DC Ketorolac Tromethamine (Toradol Inj) 30 mg Q6HR PRN IV PUSH SEE LABEL COMMENTS ; Start 11/26/16 at 09:00; Stop 12/01/16 at 08:59 A/P Assessment and Plan Metabolic encephalopathy, resolved. -Secondary to heroin overdose. -s/p Diprivan and Pradaxa dextran drip. -On Lactulose 30mg BID. -Status post intubation/extubation. Polysubstance abuse - UDS: Cocaine, Cannabinoids, Amphetamines, Opiates. -Education given. Elevated LFTs improving. -Most likely secondary to drug use. Ultrasound shows fatty liver disease. -Pending hepatitis panel. Leukocytosis -Most likely reactive secondary to overdose. -Patient is on IV antibiotics. -Clinically doing well. Cultures obtained so far negative. Blood cultures are still pending. -Continue with IV antibiotics. Poor coping skills -Dealt with patient's nurse and stated that this is not an appropriate consult for psychiatrist while in the hospital. -I also asked patient if he would like to see a psychiatrist and he declined. He stated that there is no reason for him to see a psychiatrist. -I told patient and nurse that this can be done as outpatient and he can follow up with a psychologist for coping skills. GI/DVT prophylaxis- On Pepcid and Lovenox respectively. Discharge Planning Patient is medically stable can be transferred out of the ICU. Danika Fagan MD Nov 26, 2016 09:19
[2016-11-26] MEDS: SODIUM CHLOR 0.9% 1000 ML INJ 1,000 ML IV SCH (15:23)
[2016-11-28 11:28] LABS: STAT NO
== END 2016-11-26 18:48 | disposition left against medical advice (07) | DRG 917 ==
LOC: NEPE 03:21 → NEDA 04:06 → HIME 04:45 → N07A 11-26 16:45
PROVIDERS: ADMIT Family Medicine; ATTEND Family Medicine
PROC: 0BH17EZ Insertion of Endotracheal Airway into Trachea, Via Natural or Artificial Opening (ICD-10-PCS; principal; 2016-11-24)
PROC: 5A1945Z Respiratory Ventilation, 24-96 Consecutive Hours (ICD-10-PCS; 2016-11-24)
DX: T40.1X1A Poisoning by heroin, accidental (unintentional), initial encounter (principal); G93.41 Metabolic encephalopathy; J96.90 Respiratory failure, unspecified, unspecified whether with hypoxia or hypercapnia; N17.9 Acute kidney failure, unspecified; E87.2 Acidosis; F11.20 Opioid dependence, uncomplicated; Y92.9 Unspecified place or not applicable; F14.10 Cocaine abuse, uncomplicated; K59.00 Constipation, unspecified; E86.0 Dehydration
CPT/HCPCS: 31500; 36600; 51702; 71010; 76705; 80053; 80074; 80307; 81001; 82140; 82805; 82948; 83735; 84100; 85025; 85610; 87040; 87086; 93005; 94002; 94003; 94640; 94664; J0330; J0696; J1630; J1650; J2543; J3010; J3370; J7030; J7050